=== PATIENT | male | born 1960 | race Caucasian/White ===

== ENCOUNTER 2019-01-20 07:45 | Day surgery (SDC) | payer OTHER ==
--- NOTE | 2019-01-13 14:04 | EKG ---
[facility] [address] [place] [address] Signed Sinus bradycardia with 1st degree AV block Otherwise normal ECG When compared with ECG of 08-OCT-2018 10:03, Sinus rhythm has replaced Atrial fibrillation Confirmed by MEGHANA NEVILLE MD ([id number]) on 01/13/2019 2:04:28 PM Electronically Signed By: MEGHANA NEVILLE MD 01/13/19 1404 PATIENT NAME: LITO GARRETT Electrocardiogram DATE OF : 60 PHYSICIAN: MEGHANA NEVILLE MD REPORT #: [id number] REPORT IS CONFIDENTIAL AND NOT TO BE RELEASED WITHOUT AUTHORIZATION
[~2019-01-20] VITALS: Ht 182.9 cm; Wt 118.4 kg
[~2019-01-20 07:45] MED LIST: ASPIRIN81 MG PO; LIPITOR40 MG PO; METOPROLOL TART25 MG PO
[2019-01-20] MEDS ORDERED: ASPIRIN325 MG PO (13:28)
[2019-01-20] MEDS ORDERED: CELECOXIB200 MG PO (13:28)
[2019-01-20] MEDS ORDERED: HYDROCODON-ACE1 EA11 PO (13:28)
--- NOTE | 2019-01-20 13:34 | NUR ---
PT ALERT, ORIENTED AND SUPPORTED BY HIS ARIAN-WHO IS ALSO AN RN. PL WAS PLEASANT, REQUESTED PRAYER. WILL FOLLOW NEEDEDE
--- NOTE | 2019-01-20 13:39 | NUR ---
01/20/19 1339 Janice Jeffers 1331-PATIENT ARRIVED TO PACU ON 10L MASK NONAROUSABLE. RR EVEN. IVF INFUSING. RIGHT KNEE DRESSING CDI ELEVATED ON PILLOW. GOOD CAP REFILL WARMTH AND PALPABLE PEDAL PULSE. ICE APPLIED. 1335-PATIENT AROUSING TO VERBAL STIMULI OPENING EYES DENIES PAIN OR NAUSEA. PLACED ON 6L MASK DOZES BACK TO SLEEP. RR EVEN.
--- NOTE | 2019-01-20 14:05 | OR ---
[facility] [address] [place] [address] Signed DATE OF OPERATION: 01/20/2019 SURGEON: Alanna Graham MD PREOPERATIVE DIAGNOSIS: Medial meniscus tear, right knee. POSTOPERATIVE DIAGNOSIS: Medial meniscus tear, right knee. PROCEDURE PERFORMED: Right knee arthroscopy with partial medial meniscectomy. SPORTS MANAGEMENT INTERN: 1. SAM Avila. Luci was present and critical for all portions of the procedure. 2. MARY Keita. ANESTHESIA: General. BLOOD LOSS: Minimal. TOURNIQUET TIME: None. BRIEF HISTORY: Lito is a 58-year-old gentleman with pain and giving out in his knee. MRI was consistent with an unstable medial meniscus tear. Risks and benefits of operative treatment were discussed with him. He elected to proceed. DESCRIPTION OF PROCEDURE: Once consent was obtained, he was taken to the operating room. After adequate anesthesia he was placed on the operating room table. All downside pressure points were well padded. The left leg was flexed, abducted, and externally rotated on a well-padded leg long. The right was placed in well-padded proximal thigh leg long and portal sites were pre-injected using 0.25% Marcaine with epinephrine and with alcohol prep. The leg was then prepped and draped in a standard sterile fashion. A standard inferior lateral and superolateral portals were made and the scope was introduced. Electronically Signed By: ALANNA GRAHAM MD 01/20/19 1405 PATIENT NAME: LITO GARRETT OPERATIVE REPORT DATE OF : 60 REPORT #: [id number] PHYSICIAN: ALANNA GRAHAM MD PCP: SADE MORSE REPORT IS CONFIDENTIAL AND NOT TO BE RELEASED WITHOUT AUTHORIZATION [facility] [address] [place], [place] [address] Signed ARTHROSCOPIC FINDINGS: There was significant synovitis, which was fairly friable. The patella showed grade 1 chondromalacia as did the trochlea. Medial and later gutters were clear. Lateral compartment was clear. ACL and PCL were intact. Medial compartment showed a primarily undersurface radial tear with an unstable flap at the posteromedial corner. DESCRIPTION OF PROCEDURE: A standard inferomedial portal was made after localization using a spinal needle. The straight and curved biters were then used to trim the meniscus tear back to a stable rim. This was smoothed using shaver and the flap was completely removed. All debris was evacuated. The scope was withdrawn. Portals were closed with 3-0 nylon, dressed with Adaptic, ABD, and Logan wrap. He tolerated the procedure well. All sponge, needle, and instrument counts were correct. Alanna Graham MD BA/TAJ /[id number] Copies: ~ Electronically Signed By: ALANNA GRAHAM MD 01/20/19 1405 PATIENT NAME: LITO GARRETT OPERATIVE REPORT DATE OF : 60 REPORT #: [id number] PHYSICIAN: ALANNA GRAHAM MD PCP: SADE MORSE REPORT IS CONFIDENTIAL AND NOT TO BE RELEASED WITHOUT AUTHORIZATION
--- NOTE | 2019-01-20 14:14 | NUR ---
ICED WATER GIVEN. SPOUSE GIVES PATIENT HIS DENTURE AND PATIENT PLACES IT IN HIS MOUTH. CALL LIGHT WITHIN REACH. COFFEE GIVEN.
--- NOTE | 2019-01-20 14:52 | NUR ---
RN RESPONDS TO CALL LIGHT AND PATIENT IS STANDING IN THE BATHROOM WITH HIS SPOUSE. PATIENT HAS VOIDED IN URINAL. 400 ML YELLOW URINE EMPTIED FROM URINAL. PATIENT'S SPOUSE IS HELPING HIM GET DRESSED.
--- NOTE | 2019-01-20 15:15 | NUR ---
DISCHARGE INSTRUCTIONS GIVEN. PATIENT AND SPOUSE VERBALIZE UNDERSTANDING. PATIENT TRANSFERS SELF TO WHEELCHAIR AND THEN TO PERSONAL VEHICLE AND TOLERATES THAT WELL.
== END 2019-01-20 15:15 | disposition home or self-care (01) ==
LOC: DS 07:45 → OPS 07:45
PROVIDERS: Specialist
PROC: 0SBC4ZZ Excision of Right Knee Joint, Percutaneous Endoscopic Approach (ICD-10-PCS; principal; 2019-01-20 11:00)
DX: S83.241A Other tear of medial meniscus, current injury, right knee, initial encounter (principal); M65.9 Synovitis and tenosynovitis, unspecified; M22.41 Chondromalacia patellae, right knee; E78.00 Pure hypercholesterolemia, unspecified; E66.9 Obesity, unspecified; Z79.82 Long term (current) use of aspirin; Z79.899 Other long term (current) drug therapy; Z95.5 Presence of coronary angioplasty implant and graft; W00.0XXA Fall on same level due to ice and snow, initial encounter
CPT/HCPCS: 01400; 36415; 80053; 85025; J0131; J0690; J1100; J1885; J2250; J2405; J2704; J3010; J7120